=== PATIENT | female | born 1980 | race Caucasian/White ===

== ENCOUNTER 2018-11-18 10:52 | Outpatient (CLI) | payer OTHER ==
[2018-11-18 12:08] LABS: Bacteria,Urine 2+ /HPF (Negative); Bilirubin,Urine NEG (Negative); Blood,Urine NEG (Negative); Color,Urine Yellow (Yellow); Mucus,Urine FEW /HPF; Protein,Urine <15 mg/dL mg/dL (Negative); Urobilinogen,Urine < 2.0 mg/dL (<2.0)
[2018-11-18] MEDS ORDERED: LACTATED RINGERS 500 ML IV ONE (12:29)
[2018-11-18 12:33] VITALS: BP 119/61
--- NOTE | 2018-11-19 07:37 | Ultrasound Report ---
ULTRASOUND OB LIMITED HISTORY: labor. TECHNIQUE: Transabdominal ultrasound images with color Doppler imaging. FINDINGS: A single intrauterine is identified in cephalic position. Amniotic fluid is within normal l imits with LENORE measuring 10.6. heart rate measures 138 bpm. The placenta and cervix were not im aged. IMPRESSION: Viable intrauterine as described. Signer Name: Chico Duke Jr, MD Signed: 11/18/2018 12:27 PM Workstation Name: [id number]
== END 2018-11-18 12:49 | disposition home or self-care (01) ==
LOC: TRG 10:52
PROVIDERS: ATTEND Obstetrics & Gynecology
DX: O47.03 False labor before 37 completed weeks of gestation, third trimester (principal); Z3A.32 32 weeks gestation of pregnancy
CPT/HCPCS: 59025; 76815; 81001